=== PATIENT | female | born 1970 | race Caucasian/White ===

== ENCOUNTER → 2017-03-12 | Outpatient (CLI) | payer BC | LOC: MAMMO 08:37 | DX: Z12.31 Encounter for screening mammogram for malignant neoplasm of breast (principal) | CPT/HCPCS: G0202 ==

== ENCOUNTER → 2017-08-14 | Outpatient (CLI) | payer BC | LOC: LAB 14:33 | DX: B35.1 Tinea unguium (principal); Z88.2 Allergy status to sulfonamides; Z88.8 Allergy status to other drugs, medicaments and biological substances ==

== ENCOUNTER → 2017-12-19 | Outpatient (CLI) | payer BC ==
[2017-12-19 08:22] LABS: EOS # 0.1 (0.04-0.40); EOS % 1.1 % (1.0-5.0); HEMATOCRIT 40.7 % (37.0-47.0); HEMOGLOBIN 13.7 g/dL (12.5-16.0); LYMPH# 2.1 (1.50-4.00); MEAN CELL VOLUME 90 fl (78-100); MEAN CORPUSCULAR HEMOGLOBIN 30 pg (27-31); MEAN CORPUSCULAR HGB CONC 34 g/dL (33-37); MEAN PLATELET VOLUME 10.3 fl (7.4-10.4); MONO # 0.6 (0.20-0.80); NEU # 5.2 (1.40-6.50); PLATELET COUNT 265 K/mm3 (130-400); RED BLOOD COUNT 4.52 M/mm3 (4.10-5.30); RED CELL DISTRIBUTION WIDTH 12.6 % (11.5-14.5); WHITE BLOOD COUNT 8.1 K/mm3 (4.8-10.8)
[2017-12-19 08:35] LABS: ALBUMIN 3.8 g/dL (3.5-5.0); BUN/CREATININE RATIO 22.7 (6.0-26.0); CALCIUM 8.6 mg/dL (8.4-10.2); POTASSIUM 3.8 mmol/L (3.6-5.0); TOTAL BILIRUBIN 0.4 mg/dL (0.2-1.3); TOTAL PROTEIN 6.6 g/dL (6.3-8.2)
[2017-12-20 00:05] LABS: FOLLICLE STIMULATING HORMONE 4.7 mIU/mL (()); LUTENIZING HORMONE 7.4 mIU/mL (())
== END ==
LOC: LAB 08:12
PROVIDERS: Nurse Practitioner Family
DX: N92.1 Excessive and frequent menstruation with irregular cycle (principal); R53.81 Other malaise; N95.1 Menopausal and female climacteric states; F32.81 Premenstrual dysphoric disorder

== ENCOUNTER → 2017-12-23 | Outpatient (CLI) | payer BC ==
[~2017-12-23] VITALS: Ht 162.6 cm; Wt 65.9 kg
[~2017-12-23] MED LIST: DULERA1 ARO IH; FLONASE SENSIM5.9 ML NS; LATISSE 5 ML5 ML OP; METROGEL0.751 VG; ONMEL200 MG PO; SINGULAIR PO; VITAMIN D32000 UNI1 PO; ZOFRAN8 MG PO
[2017-12-23 17:00] VITALS: BP 145/87
== END ==
LOC: AMSURD 16:06
DX: I47.9 Paroxysmal tachycardia, unspecified (principal); R53.81 Other malaise; F41.1 Generalized anxiety disorder

== ENCOUNTER → 2017-12-25 | Outpatient (CLI) | payer BC ==
[2017-12-23 17:00] VITALS: BP 145/87
== END ==
LOC: VAS 15:05
DX: I34.0 Nonrheumatic mitral (valve) insufficiency (principal)

== ENCOUNTER → 2018-04-03 | Outpatient (CLI) | payer BC ==
[2017-12-23 17:00] VITALS: BP 145/87
== END ==
LOC: MAMMO 08:05
DX: Z12.31 Encounter for screening mammogram for malignant neoplasm of breast (principal); N63.10 Unspecified lump in the right breast, unspecified quadrant

== ENCOUNTER → 2018-04-07 | Outpatient (CLI) | payer BC ==
[2017-12-23 17:00] VITALS: BP 145/87
== END ==
LOC: MAMMO 06:54
DX: N60.01 Solitary cyst of right breast (principal)

== ENCOUNTER → 2019-02-13 | Outpatient (CLI) | payer BC ==
[2017-12-23 17:00] VITALS: BP 145/87
[2019-02-13 07:16] LABS: EOS # 0.1 (0.04-0.40); EOS % 0.9 % (1.0-5.0); HEMATOCRIT 39.7 % (37.0-47.0); HEMOGLOBIN 13.6 g/dL (12.5-16.0); LYMPH# 2.2 (1.50-4.00); MEAN CELL VOLUME 89 fl (78-100); MEAN CORPUSCULAR HEMOGLOBIN 31 pg (27-31); MEAN CORPUSCULAR HGB CONC 34 g/dL (33-37); MEAN PLATELET VOLUME 10.5 fl (7.4-10.4); MONO # 0.8 (0.20-0.80); NEU # 6.5 (1.40-6.50); PLATELET COUNT 290 K/mm3 (130-400); RED BLOOD COUNT 4.46 M/mm3 (4.10-5.30); RED CELL DISTRIBUTION WIDTH 12.4 % (11.5-14.5); WHITE BLOOD COUNT 9.6 K/mm3 (4.8-10.8)
[2019-02-13 07:25] LABS: POTASSIUM 3.9 mmol/L (3.5-5.1)
[2019-02-13 07:26] LABS: ALBUMIN 3.9 g/dL (3.5-5.0)
[2019-02-13 07:27] LABS: CALCIUM 8.7 mg/dL (8.3-10.5)
[2019-02-13 07:28] LABS: TOTAL PROTEIN 6.9 g/dL (6.4-8.3)
[2019-02-13 07:30] LABS: TOTAL BILIRUBIN 0.8 mg/dL (0.2-1.2)
== END ==
LOC: LAB 07:05
PROVIDERS: Physician Assistant
DX: Z01.419 Encounter for gynecological examination (general) (routine) without abnormal findings (principal); Z12.31 Encounter for screening mammogram for malignant neoplasm of breast; Z13.220 Encounter for screening for lipoid disorders; J45.990 Exercise induced bronchospasm; F32.81 Premenstrual dysphoric disorder; J30.2 Other seasonal allergic rhinitis

== ENCOUNTER → 2019-04-21 | Outpatient (CLI) | payer BC ==
[2017-12-23 17:00] VITALS: BP 145/87
== END ==
LOC: MAMMO 09:42
DX: Z12.31 Encounter for screening mammogram for malignant neoplasm of breast (principal)

== ENCOUNTER → 2020-05-17 | Outpatient (CLI) | payer BC ==
[2017-12-23 17:00] VITALS: BP 145/87
== END ==
LOC: MAMMO 13:00
DX: Z12.31 Encounter for screening mammogram for malignant neoplasm of breast (principal)

== ENCOUNTER → 2021-02-06 | Outpatient (CLI) | payer BC ==
[2021-02-06 08:49] LABS: ALBUMIN 3.5 g/dL (3.5-5.0); BASO # 0.03 (0.02-0.10); EOS # 0.09 (0.04-0.40); EOS % 1.4 % (1.0-5.0); HEMATOCRIT 37.9 % (37.0-47.0); HEMOGLOBIN 12.8 g/dL (12.5-16.0); LYMPH# 2.14 (1.50-4.00); MEAN CELL VOLUME 91 fl (78-100); MEAN CORPUSCULAR HEMOGLOBIN 31 pg (27-31); MEAN CORPUSCULAR HGB CONC 34 g/dL (33-37); MEAN PLATELET VOLUME 10.6 fl (7.4-10.4); MONO # 0.45 (0.20-0.80); NEU # 3.93 (1.40-6.50); PLATELET COUNT 252 K/mm3 (130-400); RED BLOOD COUNT 4.18 M/mm3 (4.10-5.30); RED CELL DISTRIBUTION WIDTH 12.1 % (11.5-14.5); WHITE BLOOD COUNT 6.7 K/mm3 (4.8-10.8)
[2021-02-06 08:50] LABS: CALCIUM 8.8 mg/dL (8.3-10.5)
[2021-02-06 08:52] LABS: TOTAL PROTEIN 6.3 g/dL (6.4-8.3)
[2021-02-06 08:53] LABS: TOTAL BILIRUBIN 0.5 mg/dL (0.2-1.2)
== END ==
LOC: LAB 08:08
PROVIDERS: Physician Assistant
DX: Z00.00 Encounter for general adult medical examination without abnormal findings (principal)

== ENCOUNTER → 2021-05-17 | Outpatient (CLI) | payer BC | LOC: MAMMO 09:44 | DX: Z12.31 Encounter for screening mammogram for malignant neoplasm of breast (principal) ==

== ENCOUNTER → 2022-02-09 | Outpatient (CLI) | payer BC ==
[2022-02-09 08:03] LABS: POTASSIUM 4.1 mmol/L (3.5-5.1)
[2022-02-09 08:04] LABS: ALBUMIN 3.5 g/dL (3.5-5.0)
[2022-02-09 08:05] LABS: CALCIUM 8.6 mg/dL (8.3-10.5)
[2022-02-09 08:06] LABS: TOTAL PROTEIN 6.3 g/dL (6.4-8.3)
[2022-02-09 08:08] LABS: TOTAL BILIRUBIN 0.5 mg/dL (0.2-1.2)
[2022-02-09 08:10] LABS: BASO # 0.03 K/mm3 (0.02-0.10); EOS # 0.12 K/mm3 (0.04-0.40); EOS % 1.9 % (1.0-5.0); HEMOGLOBIN 12.5 g/dL (12.5-16.0); LYMPH# 2.38 K/mm3 (1.50-4.00); MEAN CELL VOLUME 91 fl (78-100); MEAN CORPUSCULAR HEMOGLOBIN 31 pg (27-31); MEAN CORPUSCULAR HGB CONC 34 g/dL (33-37); MEAN PLATELET VOLUME 10.8 fl (7.4-10.4); MONO # 0.48 K/mm3 (0.20-0.80); NEU # 3.35 K/mm3 (1.40-6.50); PLATELET COUNT 262 K/mm3 (130-400); RED BLOOD COUNT 4.06 M/mm3 (4.10-5.30); RED CELL DISTRIBUTION WIDTH 11.9 % (11.5-14.5); WHITE BLOOD COUNT 6.4 K/mm3 (4.8-10.8)
== END ==
LOC: LAB 07:40
PROVIDERS: Physician Assistant
DX: Z00.00 Encounter for general adult medical examination without abnormal findings (principal); Z13.220 Encounter for screening for lipoid disorders; Z13.29 Encounter for screening for other suspected endocrine disorder; K90.9 Intestinal malabsorption, unspecified

== ENCOUNTER → 2024-06-26 | Outpatient (CLI) | payer BC | LOC: MAMMO 07:40 | DX: Z12.31 Encounter for screening mammogram for malignant neoplasm of breast (principal); N63.11 Unspecified lump in the right breast, upper outer quadrant ==

== ENCOUNTER → 2024-07-07 | Outpatient (CLI) | payer BC | LOC: RAD 06:56 | DX: N60.11 Diffuse cystic mastopathy of right breast (principal) ==